=== PATIENT | male | born 2000 | race Caucasian/White ===

== ENCOUNTER 2022-09-25 09:58 | Emergency (ER) | payer OTHER, SELFPAY ==
--- NOTE | ~2022-09-25 | XR_ITS ---
XR chest 2V DATE: 09/25/2022 11:08 INDICATION: Intermittent left-sided chest pain since yesterday TECHNIQUE: PA and lateral chest COMPARISON: None FINDINGS: Normal heart size. No hilar or mediastinal enlargement. No pulmonary infiltrate or consolid ation, pleural effusion or pulmonary vascular congestion or pneumothorax. Included skeletal structure s are unremarkable. IMPRESSION: Negative Reviewed, dictated and finalized at location B. IMPRESSION: Negative
[2022-09-25 09:59] VITALS: BP 124/67; PULSE 77; RESP 18; TEMP 36.8; O2SAT 100
--- NOTE | 2022-09-25 10:03 | ECG_ITS ---
Measurements Intervals [place] Rate: 85 P: 75 NC: 180 QRS: 62 QRSD: 94 T: 40 QT: 351 QTc: 418 Interpretive Statements SINUS RHYTHM NORMAL ECG NO PREVIOUS ECG AVAILABLE FOR COMPARISON Electronically Signed On 09-25-2022 11:53:13 CDT by Clinton Perez D.O.
[2022-09-25 10:13] VITALS: BP 130/78; PULSE 72; RESP 13; O2SAT 97
[2022-09-25 10:16] VITALS: O2SAT 98
[2022-09-25 10:33] LABS: Basophils Percent Auto 0.8 % (0.2-1.2); Eosinophils Absolute Auto 0.1 K/mm3 (0-0.3); Hemoglobin 14.3 g/dL (14.0-18.0); Immature Granulocyte Absolute 0.01 K/mm3 (0.00-0.031); Immature Granulocyte Percent A 0.3 % (0-0.5); Lymphocytes Percent Auto 42.6 % (18.3-44.2); Mean Corpuscular Hemoglobin 30.2 pg (26-34); Mean Corpuscular Volume 88.8 fl (80-100); Monocytes Absolute Auto 0.3 K/mm3 (0.1-0.6); Monocytes Percent Auto 8.3 % (2.6-8.5); Neutrophils Absolute Auto 1.8 K/mm3 (1.3-6.7); Platelet Count Result 183 k/mm3 (150-375); Red Blood Count 4.73 M/mm3 (4.6-6.20); Red Cell Distribution Width 12.6 % (11.5-14.5)
[2022-09-25] MEDS: ASPIRIN 81 MG CHEWABLE TABLET 324 MG PO (10:44)
[2022-09-25] MEDS: Please add drug allergy info to patient profile. 1 EACH XX (10:44)
[2022-09-25 10:45] LABS: Prothrombin Time 13.6 Seconds (11.1-14.7)
[2022-09-25 10:47] LABS: Alanine Aminotransferase 33 U/L (6-50); Albumin Level 4.7 g/dL (3.5-5.1); Alkaline Phosphatase 46 U/L (38-126); Anion Gap 8 mmol/L (8-16); Aspartate Amino Transferase 32 U/L (17-59); Bilirubin,Total 0.7 mg/dL (0.2-1.3); Blood Urea Nitrogen 16 mg/dL (9-20); Calcium 9.3 mg/dL (8.4-10.2); Carbon Dioxide 28 mmol/L (22-30); Chloride 101 mmol/L (98-107); Estimated CRCL calculation 126 ml/min; Estimated Glomerular Filt Rate > 60; Glucose 91 mg/dL (65-110); Lipase 71 U/L (23-300); Potassium 4.3 mmol/L (3.4-5.0); Sodium 137 mmol/L (137-145)
[2022-09-25 10:56] LABS: D Dimer < 0.27 ug/mL (<0.48)
[2022-09-25 10:58] LABS: Troponin I < 0.012 ng/mL (0.000-0.034)
--- NOTE | 2022-09-25 12:08 | ED.GENADULT ---
HPI - General Adult General Chief complaint: Chest Pain Stated complaint: chest pain Time Seen by Provider: 09/25/22 10:39 History of Present Illness HPI narrative: Tray Bah is a 21 y/o male who presents today with reports of having an episode of left sided chest pain with inhalation that lasted about 10 minutes yesterday. He reports that it was off and on, and today he had the same pain with inhalation intermittently that lasted for about 40 minutes. He denies any known cardiac problems, denies any significant family cardiac history. He denies any chest pain at this time/shortness of breath/fever/chills/abdominal pain/ nausea/vomiting. Related Data Allergies Allergy/AdvReac Type Severity Reaction Status Date / Time Sulfa (Sulfonamide Allergy Anaphylaxis Verified 09/25/22 10:32 Antibiotics) Review of Systems Review of Systems: CONSTITUTIONAL: Denies fever, chills, or sweats. EYES: Denies visual changes, redness, or discharge. ENT: Denies rhinorrhea, congestion, sore throat, or otalgia. CARDIOVASCULAR: Denies, palpitations, or edema. reports intermittent chest pain with inhalation that that happened once yesterday and then again today. RESPIRATORY: Denies cough or dyspnea. GASTROINTESTINAL: Denies abdominal pain, nausea, vomiting, or diarrhea. GENITOURINARY: Denies dysuria or hematuria. SKIN: Denies rash or itching. MUSCULOSKELETAL: Denies back pain, joint pain, or myalgia. NEUROLOGIC: Denies headache, numbness, dizziness, or weakness. PSYCHIATRIC: Denies anxiety or depression. Exam Narrative: GENERAL: Well-appearing, well-nourished, and in no acute distress. HEAD: Normocephalic, atraumatic. EYES: PERRLA and EOMI. ENT: Nares clear, no rhinorrhea or epistaxis. Mucous membranes moist. Oropharynx without tonsillar hypertrophy exudate or other lesions. NECK: Supple. No adenopathy or masses. No carotid bruits or JVD CHEST: Clear to auscultation. No respiratory distress. No wheezes rales or rhonchi HEART: Regular rate and rhythm. No murmur heard. Normal peripheral pulses. ABDOMEN: Soft, nontender, nondistended, normal active bowel sounds. EXTREMITIES: Normal range of motion. No edema. SKIN: Warm, dry, no rash. NEURO: No focal deficits. Alert and oriented x3. PSYCH: Normal mood and affect. Course Vital Signs Vital signs: Vital Signs Temperature 36.8 C 09/25/22 09:59 Pulse Rate 77 09/25/22 09:59 Respiratory Rate 18 09/25/22 09:59 Blood Pressure 124/67 09/25/22 09:59 Pulse Oximetry 100 09/25/22 09:59 Oxygen Delivery Room Air 09/25/22 09:59 Temperature 36.8 C 09/25/22 09:59 Pulse Rate 72 09/25/22 10:13 Respiratory Rate 13 09/25/22 10:13 Blood Pressure 130/78 09/25/22 10:13 Pulse Oximetry 98 09/25/22 10:16 Oxygen Delivery Room Air 09/25/22 10:16 Medical Decision Making MDM Narrative Medical decision making narrative: No significant hx noted. No active chest pain or any symptoms here. Cardiac work up including Dimmer is negative here. Chest x ray is clear Lung sounds clear Abdomen soft non tender patient appears well and asymptomatic plan to d/c home with anti-inflammatories to continue and follow up with PCP for further out pt work up. Discussed this plan with pt and he verbalizes understanding and agrees with plan Differential Diagnosis Differential Diagnosis: Cardiac Ischemia/ Pulmonary embolism/ pleurisy/ costochondritis/ URI/ muscle strain Vital Signs Vital Signs: Vital Signs Temperature 36.8 C 09/25/22 09:59 Pulse Rate 77 09/25/22 09:59 Respiratory Rate 18 09/25/22 09:59 Blood Pressure 124/67 09/25/22 09:59 Pulse Oximetry 100 09/25/22 09:59 Oxygen Delivery Room Air 09/25/22 09:59 Temperature 36.8 C 09/25/22 09:59 Pulse Rate 72 09/25/22 10:13 Respiratory Rate 13 09/25/22 10:13 Blood Pressure 130/78 09/25/22 10:13 Pulse Oximetry 98 09/25/22 10:16 Oxygen Delivery Room Air 09/25/22 10:16
[2022-09-25 12:50] VITALS: PULSE 68; RESP 15; O2SAT 98
== END 2022-09-25 12:50 | disposition home or self-care (01) ==
PROVIDERS: General Practice; Emergency Provider Nurse Practitioner Family; PCP Emergency Medicine
DX: M94.0 Chondrocostal junction syndrome [Tietze] (principal)
CPT/HCPCS: 36415; 71046; 80053; 83690; 84484; 85025; 85380; 85610; 85730; 93005; 99284; A9270

== ENCOUNTER 2023-04-28 09:37 | Emergency (ER) | payer OTHER, SELFPAY ==
[2023-04-28] VITALS (15 sets, daily range): BP systolic 128–145; BP diastolic 70–78; PULSE 68–100; RESP 12–20; TEMP 37.1; O2SAT 98–100
--- NOTE | ~2023-04-28 | XR_ITS ---
EXAMINATION: XR chest 2V DATE: 04/28/2023 10:13 INDICATION: Left-sided chest pain TECHNIQUE: PA and lateral views of the chest are obtained. COMPARISON: 09/25/2022 FINDINGS: The lungs are free of acute opacities. No pleural effusion or pneumothorax. The cardiomedia stinal silhouette is normal. The visualized bones and soft tissues are unremarkable. IMPRESSION: 1. No acute cardiopulmonary abnormality. Reviewed, dictated and finalized at location B. IGURATION ENGINEER
--- NOTE | 2023-04-28 09:54 | ECG_ITS ---
Measurements Intervals [place] Rate: 98 P: 73 MS: 190 QRS: 63 QRSD: 96 T: 42 QT: 334 QTc: 426 Interpretive Statements SINUS RHYTHM NORMAL ELECTROCARDIOGRAM COMPARED TO ECG 09/25/2022 10:06:19 NO SIGNIFICANT CHANGES Electronically Signed On 04-28-2023 18:20:55 PHARMACIST TECHNICIAN by Wayne Fuentes M.D.
[2023-04-28 10:06] LABS: Basophils Percent Auto 0.7 % (0.2-1.2); Eosinophils Absolute Auto 0.1 K/mm3 (0-0.3); Eosinophils Percent Auto 1.8 % (0-4.4); Hematocrit 45.7 % (42.0-52.0); Hemoglobin 15.4 g/dL (14.0-18.0); Immature Granulocyte Absolute 0.01 K/mm3 (0.00-0.031); Immature Granulocyte Percent A 0.2 % (0-0.5); Lymphocytes Absolute Auto 1.58 K/mm3 (0.9-3.2); Lymphocytes Percent Auto 35.7 % (18.3-44.2); Mean Corpuscular HGB Conc 33.7 g/dl (32-36); Mean Corpuscular Hemoglobin 30.1 pg (26-34); Mean Corpuscular Volume 89.3 fl (80-100); Mean Platelet Volume 9.9 fl (7.4-10.4); Monocytes Absolute Auto 0.5 K/mm3 (0.1-0.6); Monocytes Percent Auto 10.4 % (2.6-8.5); Neutrophils Absolute Auto 2.3 K/mm3 (1.3-6.7); Neutrophils Percent Auto 51.2 % (45.5-73.1); Platelet Count Result 207 k/mm3 (150-375); Red Blood Count 5.12 M/mm3 (4.6-6.20); Red Cell Distribution Width 12.3 % (11.5-14.5); White Blood Count 4.4 K/mm3 (4.5-10.0)
[2023-04-28 10:14] LABS: Prothrombin Time 13.3 Seconds (11.1-14.7)
[2023-04-28 10:15] LABS: Partial Thromboplastin Time 29.1 SECONDS (22.3-36.8)
[2023-04-28] MEDS: ASPIRIN 81 MG CHEWABLE TABLET 324 MG PO (10:36)
--- NOTE | 2023-04-28 10:39 | ED.CHESTPAIN ---
HPI - Chest Pain General Chief Complaint: Chest Pain Stated Complaint: chest pain Time Seen by Provider: 04/28/23 09:56 History of Present Illness HPI narrative: 22-year-old male presenting to the emergency department for evaluation of chest pain that started last night while the patient was lying in bed and eating. Patient reports he was sitting partially upright when he began having some left-sided chest pain. Patient reports the pain did last until approximately 2:00 a.m. it was able to get some sleep. When patient woke up this morning he was still having the pains he presented to the emergency department for evaluation. Patient denies any previous cardiac history. Patient states he does have history of costochondritis. Patient denies any history of PE or DVT. Related Data Allergies Allergy/AdvReac Type Severity Reaction Status Date / Time Sulfa (Sulfonamide Allergy Anaphylaxis Verified 04/28/23 09:55 Antibiotics) Review of Systems Review of Systems: All systems reviewed & are unremarkable except as noted in HPI and below Exam Narrative: APPEARANCE: Well appearing, no pain, no distress, well-nourished. HEAD: normocephalic, atraumatic. EYES: PERRLA/EOMI, conjunctivae clear. NOSE: Normal no drainage NECK: Supple. No adenopathy, no masses. RESPIRATORY: Airway patent, respirations nonlabored. Clear to auscultation bilaterally, no rales, rhonchi, wheezing. CARDIOVASCULAR: Regular rate and rhythm without murmurs rubs or gallops. ABDOMINAL: Soft, nontender, nondistended, normal bowel sounds MUSCULOSKELETAL: Reproducible chest wall tenderness to left sternal border. NEURO: Alert. Cranial nerves II through XII intact. Grossly intact SKIN: Warm, dry. Normal Color Course Course Emergency Course: Patient was discharged home with recommendations for outpatient follow-up Vital Signs Vital signs: Vital Signs Pulse Rate 78 04/28/23 09:45 Temperature 98.8 F 04/28/23 09:50 Pulse Rate 68 04/28/23 14:15 Respiratory Rate 13 04/28/23 14:15 Blood Pressure 133/70 04/28/23 13:47 Pulse Oximetry 99 04/28/23 14:15 Oxygen Delivery Room Air 04/28/23 10:00 MDM - Chest Pain MDM Narrative Medical decision making narrative: 22-year-old male presenting emergency department for evaluation left-sided chest pain. Patient is afebrile with no leukocytosis and a stable hemoglobin of 15.4. Patient was mildly tachycardic in the emergency department side D-dimer was ordered. Patient's chest x-ray shows no acute abnormalities. EKG showed normal sinus rhythm with no acute abnormalities. 22-year-old male presenting to the emergency department for evaluation of left-sided chest pain. Patient is afebrile with no leukocytosis and stable hemoglobin patient had negative serial troponins and a negative D-dimer with no acute changes on his CMP and a negative lipase. Chest x-ray showed no acute cardiopulmonary abnormality. EKG showed normal sinus rhythm. Patient does have a history of costochondritis the patient does have reproducible tenderness to left lateral sternum. Low concern for ACS with the workup and suspect costochondritis the etiology for this patient's symptoms. Differential Diagnosis Differential diagnosis: Likely fracture of rib, pneumothorax, stable angina, unstable angina pectoris, atypical chest pain, st elevation myocardial infarction, costochondritis, chest pain and biliary colic Lab Data Attestation: I reviewed the patient's lab results. 04/28/23 09:56 04/28/23 10:17 Labs: Lab Results 04/28/23 04/28/23 04/28/23 Range/Units 09:56 10:17 13:24 WBC 4.4 L (4.5-10.0) K/mm3 RBC 5.12 (4.6-6.20) M/mm3 Hgb 15.4 (14.0-18.0) g/dL Hct 45.7 (42.0-52.0) % MCV 89.3 (80-100) fl MCH 30.1 (26-34) pg MCHC 33.7 (32-36) g/dl RDW 12.3 (11.5-14.5) % Plt Count 207 (150-375) k/mm3 MPV 9.9 (7.4-10.4) fl Immature Gran % (Auto) 0.2 (
[2023-04-28 10:41] LABS: Alanine Aminotransferase 34 U/L (6-50); Alkaline Phosphatase 58 U/L (38-126); Anion Gap 7 mmol/L (8-16); Aspartate Amino Transferase 28 U/L (17-59); Bilirubin,Total 0.8 mg/dL (0.2-1.3); Blood Urea Nitrogen 10 mg/dL (9-20); Calcium 9.8 mg/dL (8.4-10.2); Carbon Dioxide 29 mmol/L (22-30); Chloride 104 mmol/L (98-107); Estimated CRCL calculation 125 ml/min; Estimated Glomerular Filt Rate > 60; Glucose 100 mg/dL (65-110); Lipase 61 U/L (23-300); Potassium 3.9 mmol/L (3.4-5.0); Sodium 140 mmol/L (137-145)
[2023-04-28 10:52] LABS: Troponin I < 0.012 ng/mL (0.000-0.034)
[2023-04-28 11:23] LABS: D Dimer < 0.27 ug/mL (<0.48)
[2023-04-28] MEDS: KETOROLAC 15 MG/ML VIAL (*BKC) IV PUSH (11:43)
[2023-04-28 13:57] LABS: Troponin I < 0.012 ng/mL (0.000-0.034)
== END 2023-04-28 15:07 | disposition home or self-care (01) ==
PROVIDERS: Emergency Provider Emergency Medicine; PCP Emergency Medicine
DX: R07.89 Other chest pain (principal)
CPT/HCPCS: 36415; 71046; 80053; 83690; 84484; 85025; 85380; 85610; 85730; 93005; 96374; 99284; A9270; J1885

== ENCOUNTER 2023-06-17 14:14 | Emergency (ER) | payer OTHER, SELFPAY ==
--- NOTE | ~2023-06-17 | US_ITS ---
EXAMINATION: US scrotum doppler DATE: 06/17/2023 15:04 INDICATION: Left testicular pain TECHNIQUE: Testicular sonogram utilizing grayscale and Doppler COMPARISON: None. FINDINGS: The right testis measures 5.1 x 2.8 x 2.9 cm. The left testis measures 5.1 x 3.2 x 2.9 cm. Symmetric normal grayscale appearance to both testes. There is normal vascular flow to both testes. The right e pididymis is normal with normal vascular flow. The left epididymis is normal with normal vascular cesar w. There is no varicocele. Minimal bilateral hydroceles. IMPRESSION: 1. Minimal bilateral hydroceles. Otherwise normal scrotal ultrasound. Reviewed, dictated and finalized at location A.
[2023-06-17 14:19] VITALS: BP 159/88; PULSE 104; RESP 20; TEMP 36.8; O2SAT 97
--- NOTE | 2023-06-17 14:24 | ED.ABDPAIN ---
HPI - Abdominal Pain General Chief Complaint: Abdominal Pain Stated Complaint: ABD cramping Time Seen by Provider: 06/17/23 14:15 History of Present Illness HPI narrative: 22-year-old male presents to the emergency room for evaluation of abdominal cramping and nausea. Patient states yesterday he was at urgent care complaining of left testicular pain that radiated up into his left inguinal area, patient was given a shot of Rocephin and a 7 day course of doxycycline. The patient was instructed to seek care in the emergency room if he developed abdominal pain. Patient states he is not concerned over STI, has been with 1 sexual partner for last 4 years. Patient denies any dysuria or penile discharge. Patient denies any scrotal injury. Related Data Allergies Allergy/AdvReac Type Severity Reaction Status Date / Time Sulfa (Sulfonamide Allergy Anaphylaxis Verified 04/28/23 09:55 Antibiotics) Review of Systems Review of Systems: CONSTITUTIONAL: Denies fever, chills, or sweats. EYES: Denies visual changes, redness, or discharge. ENT: Denies rhinorrhea, congestion, sore throat, or otalgia. CARDIOVASCULAR: Denies chest pain, palpitations, or edema. RESPIRATORY: Denies cough or dyspnea. GASTROINTESTINAL: Reports abdominal cramping, nausea, vomiting GENITOURINARY: Denies dysuria or hematuria. SKIN: Denies rash or itching. MUSCULOSKELETAL: Denies back pain, joint pain, or myalgia. NEUROLOGIC: Denies headache, numbness, dizziness, or weakness. PSYCHIATRIC: Denies anxiety or depression. Exam Narrative: GENERAL: Well-appearing, well-nourished, no physical limitations, and in no acute distress. HEAD: Normocephalic, atraumatic. EYES: Conjunctivae normal, PERRLA and EOMI. CHEST: Clear to auscultation. No respiratory distress. No wheezes rales or rhonchi. HEART: Regular rate and rhythm. No murmur heard. Normal peripheral pulses. ABDOMEN: Soft, mild periumbilical tenderness, nondistended, normal active bowel sounds. : +TTP left inguinal EXTREMITIES: Normal range of motion. No edema. No clubbing or cyanosis SKIN: Warm, dry, no rash. No noted wounds NEURO: No focal deficits. Alert and oriented x3. MAEW. CN's II-XI intact bilaterally, normal gait PSYCH: Cooperative. Normal mood and affect. Course Vital Signs Vital signs: Vital Signs Temperature 36.8 C 06/17/23 14:19 Pulse Rate 104 H 06/17/23 14:19 Respiratory Rate 20 06/17/23 14:19 Blood Pressure 159/88 H 06/17/23 14:19 Pulse Oximetry 97 06/17/23 14:19 Oxygen Delivery Room Air 06/17/23 14:19 Temperature 36.8 C 06/17/23 14:19 Pulse Rate 104 H 06/17/23 14:19 Respiratory Rate 20 06/17/23 14:19 Blood Pressure 159/88 H 06/17/23 14:19 Pulse Oximetry 97 06/17/23 14:19 Oxygen Delivery Room Air 06/17/23 14:19 MDM - Abdominal Pain MDM Narrative Medical decision making narrative: 22-year-old male presents to the emergency room for evaluation of abdominal discomfort and nausea since yesterday. Patient states he was at urgent care yesterday for evaluation of left testicular pain. Patient was diagnosed with epididymitis following a normal urinalysis. Patient was given Rocephin injection and sent home with doxycycline. No history of STI or concerns over STI infections scrotal ultrasound showed bilateral hydroceles, likely the cause of the patient's testicle pain yesterday. Labs are unremarkable. Patient likely experiencing adverse effects of antibiotics. Instructed patient to hold doxycycline until his receive the results of his GC chlamydia workup from the urgent care. Lab Data 06/17/23 14:38 06/17/23 14:38 Labs: Lab Results 06/17/23 Range/Units 14:38 WBC 4.4 L (4.5-10.0) K/mm3 RBC 5.28 (4.6-6.20) M/mm3 Hgb 15.9 (14.0-18.0) g/dL Hct 46.3 (42.0-52.0) % MCV 87.7 (80-100) fl MCH 30.1 (26-34) pg MCHC 34.3 (32-36) g/dl RDW 12.4 (11.5-14.5) % Plt Count 233 (150-375) k/mm3 M
[2023-06-17] MEDS: SODIUM CHLORIDE 0.9% IV 1,000 ML 999 ML IV CONT (14:39)
[2023-06-17 14:47] LABS: Basophils Percent Auto 0.5 % (0.2-1.2); Eosinophils Percent Auto 0.9 % (0-4.4); Hematocrit 46.3 % (42.0-52.0); Hemoglobin 15.9 g/dL (14.0-18.0); Immature Granulocyte Absolute 0.02 K/mm3 (0.00-0.031); Immature Granulocyte Percent A 0.5 % (0-0.5); Lymphocytes Absolute Auto 1.43 K/mm3 (0.9-3.2); Lymphocytes Percent Auto 32.6 % (18.3-44.2); Mean Corpuscular HGB Conc 34.3 g/dl (32-36); Mean Corpuscular Hemoglobin 30.1 pg (26-34); Mean Corpuscular Volume 87.7 fl (80-100); Monocytes Absolute Auto 0.3 K/mm3 (0.1-0.6); Monocytes Percent Auto 7.7 % (2.6-8.5); Neutrophils Absolute Auto 2.5 K/mm3 (1.3-6.7); Neutrophils Percent Auto 57.8 % (45.5-73.1); Platelet Count Result 233 k/mm3 (150-375); Red Blood Count 5.28 M/mm3 (4.6-6.20); Red Cell Distribution Width 12.4 % (11.5-14.5); White Blood Count 4.4 K/mm3 (4.5-10.0)
[2023-06-17 14:54] LABS: Appearance Urine Turbid (Clear); Bacteria Urine Rare /hpf; Bilirubin Urine Negative (Negative); Blood Urine Negative (Negative); Color Urine Yellow (Yellow); Glucose Urine UA Negative (Negative); Ketones Urine Negative (Negative); Leukocyte Esterase Ur Negative LEU/UL (Negative); Nitrate Urine Negative (Negative); Non Pathogenic Casts 0-2; Protein Urine Negative (Negative); RBC Urine 0-2 /hpf (0-2); Specific Grav Ur 1.017 (1.001-1.035); Squamous Epithelial Cell Urine None Seen /hpf (Few); Urobilinogen Urine 0.2 mg/dL (<2.0); WBC Urine 0-5 /hpf (0-3); pH Urine 8.5 (5.0-9.0)
[2023-06-17 14:58] LABS: Alanine Aminotransferase 21 U/L (6-50); Albumin Level 5.4 g/dL (3.5-5.1); Alkaline Phosphatase 53 U/L (38-126); Anion Gap 9 mmol/L (4-12); Aspartate Amino Transferase 24 U/L (17-59); Bilirubin,Total 0.6 mg/dL (0.2-1.3); Blood Urea Nitrogen 13 mg/dL (9-20); Calcium 10.1 mg/dL (8.4-10.2); Carbon Dioxide 27 mmol/L (22-30); Chloride 105 mmol/L (98-107); Estimated CRCL calculation 140 ml/min; Estimated Glomerular Filt Rate > 60; Glucose 115 mg/dL (65-110); Potassium 3.9 mmol/L (3.4-5.0); Sodium 141 mmol/L (137-145)
[2023-06-17 15:08] LABS: Add Urine Microscopic? YES
[2023-06-17] MEDS: ONDANSETRON INJ 4 MG/2 ML VIAL IV PUSH (15:42)
[2023-06-17 15:53] VITALS: BP 124/71; PULSE 80; RESP 16; O2SAT 100
== END 2023-06-17 15:54 | disposition home or self-care (01) ==
PROVIDERS: Emergency Provider Nurse Practitioner Family; PCP Emergency Medicine
DX: N43.3 Hydrocele, unspecified (principal); R11.0 Nausea; T36.95XA Adverse effect of unspecified systemic antibiotic, initial encounter
CPT/HCPCS: 36415; 76870; 80053; 81001; 85025; 93976; 96361; 96374; 99284; J2405; J7030